=== PATIENT | female | born 1950 | race Caucasian/White ===

== ENCOUNTER → 2019-07-15 09:56 | Outpatient (BNVA) | payer MEDICARE, OTHER, SELFPAY | PROVIDERS: Family Provider Nurse Practitioner Family; PCP Nurse Practitioner Family; Referring Provider Internal Medicine Rheumatology; Visit Provider Internal Medicine Rheumatology | DX: M05.79 Rheumatoid arthritis with rheumatoid factor of multiple sites without organ or systems involvement (principal); Z79.899 Other long term (current) drug therapy | CPT/HCPCS: 36415; 82565; 84460; 85007; 85027; 85651; 86140; 96365; 96374; J1602 ==

== ENCOUNTER 2019-07-15 10:00 | Outpatient (CLI) | payer MEDICARE, OTHER, SELFPAY | END 2019-07-15 10:01 | disposition home or self-care (01) | LOC: RHEOACUTE 08-05 14:22 | PROVIDERS: Family Provider Nurse Practitioner Family; PCP Nurse Practitioner Family; Visit Provider Internal Medicine Rheumatology | DX: M06.9 Rheumatoid arthritis, unspecified (principal) | CPT/HCPCS: J1602 ==

== ENCOUNTER → 2019-08-27 14:51 | Outpatient (BNVA) | payer MEDICARE, OTHER, SELFPAY | PROVIDERS: Family Provider Nurse Practitioner Family; PCP Nurse Practitioner Family; Visit Provider Internal Medicine Rheumatology | DX: M05.79 Rheumatoid arthritis with rheumatoid factor of multiple sites without organ or systems involvement (principal); Z79.899 Other long term (current) drug therapy; I26.99 Other pulmonary embolism without acute cor pulmonale; Z79.01 Long term (current) use of anticoagulants; Z79.52 Long term (current) use of systemic steroids | CPT/HCPCS: 99214 ==

== ENCOUNTER 2019-09-16 10:05 | Outpatient (CLI) | payer MEDICARE, OTHER, SELFPAY ==
[2019-09-16 10:19] VITALS: BP 146/89; PULSE 102; RESP 18; TEMP 36.6; O2SAT 91
--- NOTE | 2019-09-16 11:32 | PC.NURSE ---
1130 c/o IV not feeling right. Unwrapped coban to find IV cath out. Pt states she bet she did it when grabbing her purse. 24 g cath intact. IV restarted to R AC area x1 stick 24g. Tolerated well. Infusion resumed.
[2019-09-16 11:45] VITALS: BP 130/84; PULSE 76; RESP 18; TEMP 36.4; O2SAT 93
--- NOTE | 2019-09-16 11:45 | PC.NURSE ---
Infusion complete. IV dc'd from R AC. Cath intact. Pressure dressing applied
== END 2019-09-16 10:06 | disposition home or self-care (01) ==
LOC: RHEOACUTE 10:07
PROVIDERS: Family Provider Nurse Practitioner Family; PCP Nurse Practitioner Family; Visit Provider Internal Medicine Rheumatology
DX: M06.9 Rheumatoid arthritis, unspecified (principal); Z79.899 Other long term (current) drug therapy
CPT/HCPCS: 36415; 80076; 82565; 85025; 85651; 86140; 96365; J1602

== ENCOUNTER → 2019-09-16 10:39 | Outpatient (BNVA) | payer MEDICARE, OTHER, SELFPAY | PROVIDERS: Family Provider Nurse Practitioner Family; PCP Nurse Practitioner Family | DX: M06.9 Rheumatoid arthritis, unspecified (principal); Z79.899 Other long term (current) drug therapy | CPT/HCPCS: 85025 ==

== ENCOUNTER 2019-11-11 09:02 | Outpatient (CLI) | payer MEDICARE, OTHER, SELFPAY ==
[2019-11-11 09:05] VITALS: BP 125/86; PULSE 94; RESP 20; TEMP 36.7; O2SAT 90
[2019-11-11 10:50] VITALS: BP 123/83; PULSE 96; RESP 20; TEMP 36.5; O2SAT 93
== END 2019-11-11 09:03 | disposition home or self-care (01) ==
LOC: RHEOACUTE 09:03
PROVIDERS: Family Provider Nurse Practitioner Family; PCP Nurse Practitioner Family; Visit Provider Internal Medicine Rheumatology
DX: M05.79 Rheumatoid arthritis with rheumatoid factor of multiple sites without organ or systems involvement (principal)
CPT/HCPCS: 96365; J1602

== ENCOUNTER 2020-01-07 10:21 | Outpatient (CLI) | payer MEDICARE, OTHER, SELFPAY ==
[2020-01-07 10:20] VITALS: BP 105/72; PULSE 72; RESP 16; TEMP 36.6; O2SAT 91
[2020-01-07 11:38] VITALS: BP 140/88; PULSE 88; RESP 20; TEMP 36.6; O2SAT 90
== END 2020-01-07 10:22 | disposition home or self-care (01) ==
LOC: RHEOACUTE 10:22
PROVIDERS: Family Provider Nurse Practitioner Family; PCP Nurse Practitioner Family; Visit Provider Internal Medicine Rheumatology
DX: M05.79 Rheumatoid arthritis with rheumatoid factor of multiple sites without organ or systems involvement (principal); Z79.899 Other long term (current) drug therapy
CPT/HCPCS: 36415; 80076; 82565; 85025; 85651; 86140; 96365; J1602

== ENCOUNTER → 2020-01-28 13:52 | Outpatient (BNVA) | payer MEDICARE, OTHER, SELFPAY | PROVIDERS: Family Provider Nurse Practitioner Family; PCP Nurse Practitioner Family; Visit Provider Internal Medicine Rheumatology | DX: M05.79 Rheumatoid arthritis with rheumatoid factor of multiple sites without organ or systems involvement (principal); J43.9 Emphysema, unspecified; Z79.899 Other long term (current) drug therapy; R06.00 Dyspnea, unspecified; Z87.891 Personal history of nicotine dependence; Z79.52 Long term (current) use of systemic steroids | CPT/HCPCS: 99214 ==

== ENCOUNTER 2020-02-28 14:26 | Outpatient (CLI) | payer MEDICARE, OTHER, SELFPAY ==
--- NOTE | 2020-02-28 14:45 | XR_ITS ---
WS: [id number] EXAM: XR DEXA axial skeleton* [id number] DATE OF EXAMINATION: 02/28/2020, 1442 hours COMPARISON: Prior DEXA scan from 12/15/2015 HISTORY: 69 years year old . Screening for osteoporosis. Postmenopausal. FINDINGS: Bone density of L1 through L4 is estimated at 1.038 g/cm sq: T-score of -1.2. This falls in the rang e of osteopenia. Correlates with an estimated 6.1% increase in bone density since 2015. 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 Bilateral proximal femur regions have bone mineral density estimated at 0.827 and 0.797 g/cm sq, righ t and left shoulder x-ray, correlating with a T-score of -1.4 and -1.7. This falls in the range of os teopenia. Correlates with an estimated 4.9% decrease in bone density since 2015. 10-year fracture risk for major osteoporotic fracture is 36.3%. XR/XR DEXA axial skeleton* [id number] IMPRESSION: Osteopenia within both proximal femur regions and in the lumbar spine region. Estimated 4.9% decrease in bone density in the proximal femur regions since 6.
== END 2020-02-28 14:27 | disposition home or self-care (01) ==
PROVIDERS: Family Provider Nurse Practitioner Family; PCP Nurse Practitioner Family; Visit Provider Internal Medicine Rheumatology
DX: Z13.820 Encounter for screening for osteoporosis (principal); Z78.0 Asymptomatic menopausal state; M85.88 Other specified disorders of bone density and structure, other site
CPT/HCPCS: 77080

== ENCOUNTER 2020-03-03 09:57 | Outpatient (CLI) | payer MEDICARE, OTHER, SELFPAY ==
[2020-03-03 10:10] VITALS: BP 131/92; PULSE 88; RESP 22; TEMP 36.7; O2SAT 91
--- NOTE | 2020-03-03 11:16 | PC.NURSE ---
Home med list reviewed and corrected. Copy given to patient.
--- NOTE | 2020-03-03 11:44 | PC.NURSE ---
1005 SOB with ambulating. Wearing O2 per NC at 4L.
[2020-03-03 11:45] VITALS: BP 123/91; PULSE 89; RESP 18; O2SAT 92
== END 2020-03-03 09:58 | disposition home or self-care (01) ==
LOC: RHEOACUTE 09:58
PROVIDERS: Family Provider Nurse Practitioner Family; PCP Nurse Practitioner Family; Visit Provider Internal Medicine Rheumatology
DX: Z79.899 Other long term (current) drug therapy (principal); M05.79 Rheumatoid arthritis with rheumatoid factor of multiple sites without organ or systems involvement
CPT/HCPCS: 85025; 85651; 96365; J1602